=== PATIENT | female | born 1980 | race Asian ===

== ENCOUNTER → 2016-11-12 | Outpatient (CLI) | payer OTHER ==
[~2016-11-12] MED LIST: PRENTAB26 PO
[2016-11-12 13:15] LABS: BASO % 0.1 %; BASO ABS # 0.01 K/uL (0-0.2); COMPLETE YES; EOS % 0.5 %; HEMATOCRIT 35.8 % (37-47); IG% 0.4 %; LYMPH % 11.7 %; LYMPH ABS # 0.86 K/uL (1.2-3.4); MEAN CELL VOLUME 89.1 fL (80-100); MEAN CORPUSCULAR HEMOGLOBIN 29.6 pg (25-34); MEAN CORPUSCULAR HGB CONC 33.2 g/dl (32-36); MEAN PLATELET VOLUME 11.1 fL (7.4-10.4); MONO % 6.3 %; PLATELET COUNT 151 K/uL (130-400); RED BLOOD COUNT 4.02 M/uL (4.2-5.4); WHITE BLOOD COUNT 7.34 K/uL (4.8-10.8)
[2016-11-12 13:31] LABS: URINE APPEARANCE CLEAR (CLEAR); URINE BILIRUBIN NEG (NEG); URINE COLOR YELLOW; URINE EPITHELIAL CELL AUTO >30 /lpf (0-5); URINE NITRITE NEG (NEG); URINE PH 6.5 (4.5-7.5); URINE SPECIFIC GRAVITY 1.013 (1.000-1.030); UROBILINOGEN NEG (NEG)
[2016-11-12 13:35] LABS: MANUAL MICROSCOPIC REQUIRED? NO; REVIEW REQ? NO
[2016-11-12 14:03] LABS: GTGD 50 Grams
[2016-11-16 09:32] LABS: CHLAMYDIA TRACH RNA*** NOT DETECTED (NOT DETECTED); GC (NEIS GONORRHOEAE)RNA** NOT DETECTED (NOT DETECTED)
== END | disposition home or self-care (01) ==
LOC: C.LAB1850 10:24
PROVIDERS: ATTEND Obstetrics & Gynecology
DX: O09.529 Supervision of elderly multigravida, unspecified trimester (principal); Z3A.00 Weeks of gestation of pregnancy not specified

== ENCOUNTER → 2016-12-03 | Outpatient (CLI) | payer OTHER | END | disposition home or self-care (01) | LOC: C.LABSPEC 17:28 | PROVIDERS: ATTEND Obstetrics & Gynecology | DX: O09.523 Supervision of elderly multigravida, third trimester (principal) ==

== ENCOUNTER 2017-01-05 11:08 | Inpatient (IN) | payer OTHER ==
[~2017-01-05] VITALS: Ht 167.6 cm; Wt 72.5 kg
[2017-01-05] MEDS ORDERED: LACTATED RINGER'S 1000ML 1,000 ML IV PRN (11:45)
[2017-01-05] MEDS ORDERED: LACTATED RINGER'S 1000ML 1,000 ML IV SCH (11:45)
[2017-01-05] MEDS ORDERED: PRENTAB26 PO (11:56)
[2017-01-05 11:57] VITALS: Ht 167.6 cm; Wt 72.5 kg
[2017-01-05 12:03] LABS: HEMATOCRIT 36.3 % (37-47); MEAN CELL VOLUME 87.7 fL (80-100); MEAN CORPUSCULAR HGB CONC 34.2 g/dl (32-36); MEAN PLATELET VOLUME 10.1 fL (7.4-10.4); PLATELET COUNT 125 K/uL (130-400); RED BLOOD COUNT 4.14 M/uL (4.2-5.4); WHITE BLOOD COUNT 10.49 K/uL (4.8-10.8)
[2017-01-05] MEDS ORDERED: OXYTOCIN 30 UNITS/500ML NSS IV ONE (12:16)
--- NOTE | 2017-01-05 13:24 | Medical Student: [facility] ---
Med Student History & Physical Date of Service Jan 05, 2017. Chief Complaint "I am having contractions" History of Present Illness Source: patient Patient is a 36 year old with an EDC of 12/30/16 dated by last menstrual period. Unsure of US dates as patient's care was transferred to [facility] from [place] at 33 weeks GA. was complicated by advanced maternal age and post dates . She reports feeling lots of movement. She reports a blood tinged mucousy discharge but no uterine bleeding or fluid leakage. She states that contractions started at 2400 yesterday, 01/04/17, and are now every 5-6 minutes. She states they are an 8/10 on the pain scale. 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 Menarche: age 13 LMP: 03/25/2016 Frequency: 30 days STDs: none Abnormal Paps: none Past Medical History none significant Past Surgical History none Family History none significant Social History Smoking Status: Never Smoker Smokeless Tobacco Use: No Alcohol Use: none Drug Use: none Marital Status: Housing status: lives with family (Lives in [place] but 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) 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) Allergies Coded Allergies: No Known Allergies (Unverified , 01/05/17) Home Medications Multivit/Min/Iron/Fol Ac/Pren ( Vitamin), 1 TAB PO DAILY Review of Systems Constitutional: + fatigue, No chills, No fever Eyes: No diplopia, No worsening of vision ENT: No hearing loss, No nasal symptoms, No sore throat, No trouble swallowing Respiratory: No cough, No shortness of breath Cardiovascular: No chest pain, No edema, No palpitations Abdomen: + pain (contraction pain), No nausea, No vomiting Musculoskeletal: No calf pain, No joint pain Genitourinary - Female: + urinary frequency, + vaginal discharge (blood tinged , small amount), No dysuria, No urinary urgency Neurologic: No numbness/tingling, No weakness Psychiatric: No anxiety, No depression symptoms Endocrine: + fatigue Hematologic / Lymphatic: No abnormal bleeding/bruising, No clotting problems Integumentary: No new/changing skin lesions, No rash Physical Exam Vital Signs: VS: Afebrile BP 124/73 75 bpm RR 20 General Appearance: WD/WN, + mild distress Respiratory/Chest: chest non-tender, normal breath sounds, no respiratory distress Cardiovascular: regular rate, rhythm, no edema, normal peripheral pulses Abdomen / GI: + pertinent finding (gravid) Genitourinary - Female: + pertinent finding (Cervix 7 cm dialtes, 100% effaced , station -1, cervix soft) Extremities: normal inspection, no calf tenderness, no pedal edema Monitoring External Monitor: Baseline FHR 130 Moderate Variability Accelerations to 150 some early decelerations Category 1 Tracing Tocodynamometer: Contractions every 9 minutes, 70-110 seconds duration Laboratory Results 01/05/17 11:54 Test 01/05/17 11:54 Red Blood Count 4.14 M/uL (4.2-5.4) Mean Corpuscular Volume 87.7 fL (80-100) Mean Corpuscular Hemoglobin 30.0 pg (25-34) Mean Corpuscular Hemoglobin Concent 34.2 g/dl (32-36) RDW Standard Deviation 44.6 fL (36.4-46.3) RDW Coefficient of Variation 13.7 % (11.5-14.5) Mean Platelet Volume 10.1 fL (7.4-10.4) Assessment and Plan Assessment: Patient is a 36 year old at 40weeks and 6 days GA who presents to the floor in labor. Plan: 1. Continue external monitoring, record every 30 minutes. 2. continue tocodynamometer, record every 30 minutes. 3. Vital signs every hour. 4. CBC drawn. 5. Ambulate as needed. 6. Patient declines anesthesia at this time.
[2017-01-05] MEDS ORDERED: ACETAMINOPHEN 325 MG TAB PO PRN (14:30)
[2017-01-05] MEDS ORDERED: LANOLIN OINT EXT PRN ×2 (14:30)
[2017-01-05] MEDS ORDERED: BENZOCAINE 20% AER SPR 82.5 GM CAN EXT PRN (14:30)
[2017-01-05] MEDS ORDERED: OXYTOCIN 30 UNITS/500ML NSS IV PRN (14:30)
[2017-01-05] MEDS ORDERED: ACETAMINOPHEN/CODEINE 300/30MG TAB PO PRN ×2 (14:30)
[2017-01-05] MEDS ORDERED: HYDROCORTISONE ACETATE 25 MG SUPP PR PRN (14:30)
[2017-01-05] MEDS ORDERED: OXYCODONE/ACETAMINOPHEN 5-325 TAB PO PRN (14:30)
[2017-01-05] MEDS ORDERED: SUPERCREAM 0.870 % 15GM JAR EXT PRN (14:30)
[2017-01-05] MEDS ORDERED: IBUPROFEN 600 MG TAB PO PRN (14:30)
--- NOTE | 2017-01-05 14:31 | DELIVERY SUMMARY ---
DATE OF OPERATION: 01/05/2017 Mrs. Higginbotham presented in labor at 7 cm with second baby. Group B strep negative. She did not request epidural. The patient rapidly progressed to fully dilated, spontaneously ruptured and then delivered a baby in occiput anterior position without difficulty. Live vigorous male infant. There was a loose nuchal cord passed over the head and no excessive force was used. Cord clamped and cut. Cord gasses obtained. Placenta removed. Cord blood had been obtained as well. There was a second degree tear repaired with 3-0 Vicryl. Sponge and instrument counts were correct. Estimated blood loss 300 mL. I attest to the content of the Intraoperative Record and any orders documented therein. Any exceptio ns are noted below.
--- NOTE | 2017-01-05 14:37 | Medical Student: [facility] ---
Medical Student Delivery Note Pre-op diagnosis: 1. Intrauterine at 40 6/7 weeks Post-op diagnosis: Same Procedure: Normal Spontaneous Vaginal Delivery Surgeon: Dr. Bernard Anesthesia: none EBL: 300cc Procedure: The patient presented to Labor and Delivery post-dates in active labor. She presented at 7cm dilated, 100% effaced and -1 station. She then progressed to 9.5cm dilation, 100% effacement and 0 station with spontaneous rupture of membranes and pushed effectively for approximately 10 minutes to delivery of a viable male in the left occiput anterior position. A loose nuchal cord was present and reduced. A second degree perineal laceration was present. The infant was placed on mother's abdomen for drying. The mouth and nose were bulb suctioned. The cord was clamped and cut. Cord blood and gases were obtained. A second degree perineal laceration was reapproximated using 3-0 vicryl. The placenta was delivered spontaneously, intact, 3 vessel cord. Bleeding was controlled with fundal massage and dilute IV oxytocin. Mother and baby doing well at the end of delivery. APGARs were 8/9 at 1 and 5 minutes respectively. Weight is pending.
[2017-01-05 16:30] VITALS: BP 102/64; PULSE 78; TEMP 36.4; O2SAT 97
[2017-01-05] MEDS: DOCUSATE SODIUM 100 MG CAP PO SCH (20:14)
[2017-01-05 20:15] VITALS: BP 104/67; PULSE 104; TEMP 36.6
[2017-01-05 23:30] VITALS: BP 98/60; PULSE 85; TEMP 36.8; O2SAT 97
[2017-01-06 03:10] VITALS: BP 100/65; PULSE 75; TEMP 36.5
[2017-01-06 06:36] LABS: HEMATOCRIT 30.7 % (37-47)
--- NOTE | 2017-01-06 06:53 | Progress Note ---
Subjective Jan 06, 2017. Subjective conversation w/ patient, physical exam, lab review Ambulation: ambulating normally Passing Gas: Yes Diet Tolerance: Regular Diet Lochia: Small Feeding Type: Breast Feeding Pain: 2/10, improves with medication Comment: Patient was seen at the bedside. No Acute event overnight. Review of Systems Constitutional: No chills, No fever Respiratory: No shortness of breath Cardiac: No chest pain Breast: No breast lump Abdomen: No nausea, No pain, No vomiting Female : No dysuria Denies headache Objective Vital Signs Date Time Temp Pulse Resp B/P Pulse Ox O2 Delivery O2 Flow Rate FiO2 01/06/17 03:10 36.5 75 18 100/65 01/05/17 23:30 36.8 85 18 98/60 Room Air 01/05/17 23:30 97 Room Air 01/05/17 20:15 36.6 104 20 104/67 Room Air 01/05/17 16:30 97 Room Air 01/05/17 16:30 36.4 78 18 102/64 97 Room Air Physical Exam General Appearance: WELL-APPEARING, WD/WN Respiratory/Chest: chest non-tender, lungs clear, normal breath sounds Cardiovascular: regular rate, rhythm Abdomen: normal bowel sounds, soft, + tenderness (appropriate for ) Fundus: Firm, Relation to Umbilicus (1cm below) Extremities: non-tender, no pedal edema Laboratory Results Last 24 Hours Test 01/05/17 11:54 01/06/17 06:11 White Blood Count 10.49 K/uL Red Blood Count 4.14 M/uL Hemoglobin 12.4 g/dL 10.4 g/dL Hematocrit 36.3 % 30.7 % Mean Corpuscular Volume 87.7 fL Mean Corpuscular Hemoglobin 30.0 pg Mean Corpuscular Hemoglobin Concent 34.2 g/dl RDW Standard Deviation 44.6 fL RDW Coefficient of Variation 13.7 % Platelet Count 125 K/uL Mean Platelet Volume 10.1 fL Medications Current Inpatient Medications Medications (Trade) Dose Ordered Sig/Efrain Route Start Time Stop Time Status Last Admin Dose Admin Lactated Ringer's 1,000 ml @ 125 mls/hr Q8H IV 01/05/17 11:45 01/07/17 11:44 01/05/17 13:48 125 MLS/HR Lactated Ringer's (Lr 1000ml) 1,000 ml @ 999 mls/hr Q1H1M PRN IV 01/05/17 11:45 02/04/17 11:44 Oxytocin (Pitocin IV) 30 units UD PRN IV 01/05/17 14:30 02/04/17 14:29 01/05/17 14:50 30 UNITS Benzocaine (Dermoplast Aero Spr) 1 appln PRN PRN EXT 01/05/17 14:30 02/04/17 14:29 Cocaine HCl (Supercream 0.870% Cr) BID PRN EXT 01/05/17 14:30 01/19/17 14:29 01/05/17 23:57 15 GM Hydrocortisone Acetate (Anusol Hc Supp) 25 mg BID PRN [place] 01/05/17 14:30 02/04/17 14:29 Lanolin (Lanolin Oint) PRN PRN EXT 01/05/17 14:30 02/04/17 14:29 Prenat Multivit/ [place]/Iron/Folic Ac ( Vitamin Tab) 1 tab DAILY PO 01/06/17 08:00 02/05/17 07:59 Ibuprofen (Motrin Tab) 600 mg Q4H PRN PO 01/05/17 14:30 02/04/17 14:29 Acetaminophen (Tylenol Tab) 650 mg Q6H PRN PO 01/05/17 14:30 02/04/17 14:29 Acetaminophen/ Codeine Phosphate (Tylenol w/ Codeine #3 Tab) 1 tab Q4H PRN PO 01/05/17 14:30 02/04/17 14:29 Acetaminophen/ Codeine Phosphate (Tylenol w/ Codeine #3 Tab) 2 tab Q4H PRN PO 01/05/17 14:30 02/04/17 14:29 Bisacodyl (Dulcolax Tab) 5 mg 20 PO 01/06/17 20:00 01/06/17 20:01 Bisacodyl (Dulcolax Supp) 10 mg DAILY PRN [place] 01/07/17 07:00 Docusate Sodium (coLACE CAP) 100 mg BID PO 01/05/17 20:00 02/04/17 19:59 01/05/17 20:14 100 MG Assessment and Plan Day#: 1 Continue Routine Care: A/P: This is a 36 y/o female, , s/p normal vaginal delivery. She is ambulating and clinically stable. Plan: - Vitals signs are reviewed and WNL (Tmax 36.5 ) - Hgb is --> 12.4 (01/05) - Blood type A+, GBS neg, Rubella Immune - Routine care - Encourage ambulation, monitor and control pain with medication as needed , continue with regular diet as tolerated and monitor lochia - Stool softeners and sitz bath recommended - Encourage breast feeding and educate about breast feeding Resident Physician Supervision Note: I interviewed and examined the patient. Discussed with Dr. Amaya and agree with findings and plan as documented in the note. Any exceptions or clarifications are listed here: [None] Documented By: John Bernard
--- NOTE | 2017-01-06 06:58 | Medical Student: [facility] ---
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 Subjective conversation w/ patient, conversation w/ family Ambulation: ambulating normally (getting up to use restroom) Voiding: no voiding problems Passing Gas: Yes Diet Tolerance: Regular Diet Lochia: Small (has slowed considerable) Feeding Type: Breast Feeding Pain: 2/10, has not needed pain medication Notes: Doing much better this morning. Review of Systems Constitutional: No chills, No fever Respiratory: No cough, No shortness of breath Cardiac: No chest pain, No edema, No palpitations Breast: No breast pain, No nipple discharge Abdomen: + pain, No nausea, No vomiting Female : No dysuria, No urinary frequency Objective Vital Signs Date Time Temp Pulse Resp B/P Pulse Ox O2 Delivery O2 Flow Rate FiO2 01/06/17 03:10 36.5 75 18 100/65 01/05/17 23:30 36.8 85 18 98/60 Room Air 01/05/17 23:30 97 Room Air 01/05/17 20:15 36.6 104 20 104/67 Room Air 01/05/17 16:30 97 Room Air 01/05/17 16:30 36.4 78 18 102/64 97 Room Air Physical Exam General Appearance: WELL-APPEARING, NO APPARENT DISTRESS Respiratory/Chest: lungs clear, normal breath sounds, no respiratory distress Cardiovascular: regular rate, rhythm, no edema, no murmur Abdomen: normal bowel sounds, non tender, soft Fundus: Firm, Relation to Umbilicus (1cm below umbilicus) Extremities: non-tender, no pedal edema, no calf tenderness Laboratory Results Last 24 Hours Test 01/05/17 11:54 01/06/17 06:11 White Blood Count 10.49 K/uL Red Blood Count 4.14 M/uL Hemoglobin 12.4 g/dL 10.4 g/dL Hematocrit 36.3 % 30.7 % Mean Corpuscular Volume 87.7 fL Mean Corpuscular Hemoglobin 30.0 pg Mean Corpuscular Hemoglobin Concent 34.2 g/dl RDW Standard Deviation 44.6 fL RDW Coefficient of Variation 13.7 % Platelet Count 125 K/uL Mean Platelet Volume 10.1 fL Assessment and Plan Post- Day Number: 1 Continue Routine Care: Assessment: Isaias is a 36 year old day 1 s/p at 40 6/7 weeks gestation. She is doing well clinically. Plan: Continue routine care. Encourage ambulation as tolerated. Continue PO diet and fluids. Educate about and encourage . Ibuprofen as needed for pain. Rubella vaccine and Rhogam not needed as is Rubella immune and type A+.
[2017-01-06 07:45] VITALS: BP 118/74; PULSE 74; TEMP 36.5
[2017-01-06] MEDS: DOCUSATE SODIUM 100 MG CAP PO SCH ×2 (09:07→20:20)
[2017-01-06] MEDS: PRENATAL VITAMIN TAB PO SCH (09:07)
[2017-01-06 12:31] VITALS: BP 112/69; PULSE 76; TEMP 36.6; O2SAT 99
[2017-01-06 16:00] VITALS: BP 104/70; PULSE 79; TEMP 36.4; O2SAT 98
[2017-01-06] MEDS ORDERED: BISACODYL 5 MG TABEC PO SCH (20:00)
[2017-01-06 23:45] VITALS: BP 109/69; PULSE 65; TEMP 36.5
--- NOTE | 2017-01-07 06:45 | Discharge Instructions ---
Discharge Instructions Date of Service Jan 05, 2017. Admission Reason for Admission: R/O Labor Discharge Discharge Diagnosis / Problem: s/p normal vaginal delivery Discharge Goals Goal(s): Routine recovery after delivery Medications Continue Dispensed Medications: supercream, dermaplast, tucks, lansinoh Activity Recommendations Activity Limitations: as noted below . Instructions / Follow-Up Instructions / Follow-Up ACTIVITY RECOMMENDATIONS: * Gradual return to full activity over the next 2-3 weeks. * No lifting - nothing heavier than baby over the next 2-3 weeks. * Do not engage in vigorous exercise, sexual activity or sports until cleared by your physician. * Do not drive or operate any motorized equipment until cleared by your physician. * You may shower/bathe daily. MEDICATIONS: For discomfort or pain, you may use Acetaminophen (Tylenol), Ibuprofen (Advil), or Naproxen (Aleve) following the package directions. For constipation you may use Colace following the package directions. BREAST CARE: If you are not breast feeding: * Wear a supportive bra 24 hours a day for one to two weeks. * Avoid stimulating your breasts and nipples as much as possible during the first few weeks after delivery. * When taking a shower, have the warm water hit your back, not breasts. * When your breasts feel full, apply ice packs. Usually three to four times a day helps ease the discomfort. * Take a mild pain medication (Tylenol / Motrin) when you are uncomfortable. If breast feeding: * Use breast milk to lubricate nipples. Lansinoh cream may be used for sore nipples. You do not need to remove cream prior to breast feeding. If using a different brand of cream, check the label for directions regarding removal of cream prior to nursing. * Wear a supportive bra. * If having problems with breasts or breast feeding, call a advanced manufacturing consultant or your health care provider. EPISIOTOMY CARE: After delivery, if you have an episiotomy (stitches), the following steps will ease discomfort and aid healing. * For the first 24 hours after delivery, place ice packs next to your episiotomy to help reduce swelling. * After the first 24 hour-period, sitz baths, either portable or in the tub, are suggested. A shower with a shower arm sprayed over the episiotomy may be comforting. * Lacy care should be done after each voiding and bowel movement. Squirt warm water from a plastic bottle over the perineum (region of the body between the anus and urinary opening) and pat dry. * Use Dermoplast to ease discomfort. Shake container. Gilbert directly over the episiotomy. Place a Tucks on a clean sanitary pad next to your episiotomy. SPECIAL CARE INSTRUCTIONS: When you are discharged from the hospital, it is important for you to follow the instructions listed below: * During the first week at home, you should be able to care for yourself and your baby. In addition, the usual light household activities are encouraged. * Limit your activities to the way you feel. Do not try to clean the house or move furniture. Be sensible. * If you actively engage in sports and have done so up until the time of your delivery, you may resume these activities as soon as you feel able. This may take up to one month or even longer. Use good judgment. * Continue to take your vitamins for at least six weeks after the of your baby. * Your diet need not be limited unless you were on a special diet before your delivery. Breast-feeding mothers need around 2500 calories per day and at least 64-80 ounces of fluid per day (8 to 10 glasses). * You should eat foods from the four major food groups. Crash diets or fad diets are to be avoided. Eating lean meats, fresh fruits and vegetables, low-fat dairy products, high fiber foods and a regular exercise program, will help you get back to your pre- weight without putting your health at risk. * Constipation is sometimes a problem after delivery. Take a mild laxative as needed. If breast feeding, Milk of Magnesia is acceptable to use. You may use a suppository or Fleets enema if no episiotomy. * A daily shower or tub bath is suggested. Be sure to thoroughly and gently dry the perineum. * A bloody vaginal discharge will usually continue until around four weeks post . A small amount of bleeding may continue for as long as six weeks. Vaginal discharge changes from the bright red bleeding after delivery to pink then brownish and finally yellowish-pink before becoming white and disappearing. * Bleeding may increase with activity. Your first period may come in 4-8 weeks. If you are breast feeding, your period may be delayed even longer. * Confluence (sex) can begin whenever both you and your partner feel comfortable and do not have any form of genital infection. It is recommended that you wait at least six weeks for internal and external healing to occur. If you have questions, please talk to your health care practitioner. A condom should be used to prevent infection and . * Foreplay, gentle intercourse and lubrication is very important the first several times to prevent pain. A water-based lubricant such as K-Y jelly or Astroglide may be used. * If you have RH negative blood and your baby is RH positive, you will receive RHOGAM by injection prior to discharge. The nurse will give you a card to keep with you that has the date and place that you received RHOGAM after delivery. * During your care, you had a Rubella screen done to check for the presence of rubella antibodies in your blood. If your test was negative, you will receive a Rubella vaccine prior to discharge. This vaccine may cause a fever, soreness at the injection site and flu-like symptoms. If these symptoms persist, notify your health care practitioner. is not advised for one month after a Rubella vaccine. * Verbalizes understanding of car seat law as reviewed with patient nursing. * Car Seat hand-out given and reviewed with patient by nursing. * Shaken baby information reviewed with patient by nursing. Call you doctor if: * Heavy bleeding (saturating several pads an hour) or passing clots the size of your fist. * A fever >101 degrees F (38.3 degrees C) on two occasions four hours apart and /or chills. * Unusual pain in the pelvic or vaginal areas. * "Baby Blues" lasting longer than two weeks. If you have any questions or concerns, call your health care practitioner at . FOLLOW UP VISIT: * Please call the office at to schedule a 6 week examination. It is important you keep this appointment. It is important for you to make arrangements for either yearly or twice yearly check-ups thereafter. Current Hospital Diet Patient's current hospital diet: Regular OB Diet Discharge Diet Recommended Diet: Regular Diet Pending Studies Studies pending at discharge: no Medical Emergencies . Who to Call and When: Medical Emergencies: If at any time you feel your situation is an emergency, please call 911 immediately. . Non-Emergent Contact Non-Emergency issues call your: Fixed Income Manager Call Non-Emergent contact if: you have a fever, temperature is above 101 . . "Provider Documentation" section prepared by Carla Amaya. VTE Core Measure Inpt VTE Proph given/why not?: Treatment not indicated
--- NOTE | 2017-01-07 06:45 | Progress Note ---
Subjective Jan 07, 2017. Subjective conversation w/ patient, physical exam, lab review Ambulation: ambulating normally Voiding: no voiding problems Passing Gas: Yes Diet Tolerance: Regular Diet Lochia: Small Feeding Type: Breast Feeding Pain: 4/10, improves with medication Comment: Patient was seen at the bedside. No acute event overnight. Review of Systems Constitutional: No chills, No fever Respiratory: No cough, No shortness of breath Cardiac: No chest pain Breast: No breast lump Abdomen: No nausea, No pain, No vomiting Female : No dysuria, No urinary frequency denies headache Objective Vital Signs Date Time Temp Pulse Resp B/P Pulse Ox O2 Delivery O2 Flow Rate FiO2 01/06/17 23:45 36.5 65 18 109/69 Room Air 01/06/17 23:45 Room Air 01/06/17 16:00 36.4 79 18 104/70 98 Room Air 01/06/17 16:00 98 Room Air 01/06/17 12:31 36.6 76 12 112/69 99 Room Air 01/06/17 07:45 36.5 74 18 118/74 Room Air 01/06/17 07:45 Room Air Physical Exam General Appearance: WELL-APPEARING, WD/WN Respiratory/Chest: chest non-tender, lungs clear, normal breath sounds Cardiovascular: regular rate, rhythm Abdomen: normal bowel sounds, non tender, soft Fundus: Firm, Relation to Umbilicus (3 cm below) Extremities: non-tender, no pedal edema Laboratory Results Last 24 Hours Test 01/06/17 06:11 Hemoglobin 10.4 g/dL Hematocrit 30.7 % Medications Current Inpatient Medications Medications (Trade) Dose Ordered Sig/Efrain Route Start Time Stop Time Status Last Admin Dose Admin Lactated Ringer's 1,000 ml @ 125 mls/hr Q8H IV 01/05/17 11:45 01/07/17 11:44 01/05/17 13:48 125 MLS/HR Lactated Ringer's (Lr 1000ml) 1,000 ml @ 999 mls/hr Q1H1M PRN IV 01/05/17 11:45 02/04/17 11:44 Oxytocin (Pitocin IV) 30 units UD PRN IV 01/05/17 14:30 02/04/17 14:29 01/05/17 14:50 30 UNITS Benzocaine (Dermoplast Aero Spr) 1 appln PRN PRN EXT 01/05/17 14:30 02/04/17 14:29 Cocaine HCl (Supercream 0.870% Cr) BID PRN EXT 01/05/17 14:30 01/19/17 14:29 01/05/17 23:57 15 GM Hydrocortisone Acetate (Anusol Hc Supp) 25 mg BID PRN [place] 01/05/17 14:30 02/04/17 14:29 Lanolin (Lanolin Oint) PRN PRN EXT 01/05/17 14:30 02/04/17 14:29 Prenat Multivit/ [place]/Iron/Folic Ac ( Vitamin Tab) 1 tab DAILY PO 01/06/17 08:00 02/05/17 07:59 01/06/17 09:07 1 TAB Ibuprofen (Motrin Tab) 600 mg Q4H PRN PO 01/05/17 14:30 02/04/17 14:29 Acetaminophen (Tylenol Tab) 650 mg Q6H PRN PO 01/05/17 14:30 02/04/17 14:29 Acetaminophen/ Codeine Phosphate (Tylenol w/ Codeine #3 Tab) 1 tab Q4H PRN PO 01/05/17 14:30 02/04/17 14:29 Acetaminophen/ Codeine Phosphate (Tylenol w/ Codeine #3 Tab) 2 tab Q4H PRN PO 01/05/17 14:30 02/04/17 14:29 Bisacodyl (Dulcolax Supp) 10 mg DAILY PRN [place] 01/07/17 07:00 Docusate Sodium (coLACE CAP) 100 mg BID PO 01/05/17 20:00 02/04/17 19:59 01/06/17 20:20 100 MG Assessment and Plan Post- Day#: 2 Continue Routine Care: A/P: This is a 36 y/o female, , s/p normal vaginal delivery. She is ambulating and clinically stable to discharge. - Vital signs are reviewed and WNL (Tmax 36.8) - Last Hgb is 10.4 - Blood type A+, GBS neg, Rubella Immune - No signs of depression. - Routine care - Discussed resting, feeding, pain control, mastitis, control, follow up in 6 weeks and reasons to call sooner, if necessary. - Continue with pain medication as needed, and continue vitamins. - Encourage breast feeding and educate about breast feeding - Patient understands and keen for home. - Plan to discharge home Resident Physician Supervision Note: I interviewed and examined the patient. Discussed with Dr. Amaya and agree with findings and plan as documented in the note. Any exceptions or clarifications are listed here: [None] Documented By: Keshav Salcedo
[2017-01-07] MEDS ORDERED: BISACODYL 10 MG SUPP PR PRN (07:00)
[2017-01-07] MEDS: PRENATAL VITAMIN TAB PO SCH (08:14)
[2017-01-07] MEDS: DOCUSATE SODIUM 100 MG CAP PO SCH (08:14)
[2017-01-07 09:05] VITALS: BP 115/76; PULSE 97; TEMP 36.5
[2017-01-07 11:20] VITALS: BP_DIAS 76; PULSE 97; TEMP 36.5
== END 2017-01-07 11:24 | disposition home or self-care (01) | DRG 775 ==
LOC: C.LD 11:08 → C.OPB 11:08 → C.LD 11:46 → C.OBG 16:33
PROVIDERS: ADMIT Obstetrics & Gynecology; ATTEND Obstetrics & Gynecology
PROC: 10E0XZZ Delivery of Products of Conception, External Approach (ICD-10-PCS; principal; 2017-01-05)
PROC: 0KQM0ZZ Repair Perineum Muscle, Open Approach (ICD-10-PCS; principal; 2017-01-05)
DX: O48.0 Post-term pregnancy (principal); O70.1 Second degree perineal laceration during delivery; O09.523 Supervision of elderly multigravida, third trimester; O69.81X0 Labor and delivery complicated by cord around neck, without compression, not applicable or unspecified; Z3A.40 40 weeks gestation of pregnancy; Z37.0 Single live birth